=== PATIENT | female | born 1960 | race Caucasian/White ===

== ENCOUNTER 2016-07-24 10:20 | Emergency (ER) | payer OTHER ==
[~2016-07-24] VITALS: Ht 172.7 cm; Wt 58.2 kg
[2016-07-24 10:24] VITALS: TEMP 97.3
[2016-07-24] MEDS ORDERED: PERCOCET 325 MG1 TA2 PO (13:18)
[2016-07-24 14:04] VITALS: BP 112/60; PULSE 71
== END 2016-07-24 14:07 | disposition home or self-care (01) ==
LOC: COL.ER 10:20
DX: S30.0XXA Contusion of lower back and pelvis, initial encounter (principal); W10.9XXA Fall (on) (from) unspecified stairs and steps, initial encounter; W00.1XXA Fall from stairs and steps due to ice and snow, initial encounter
CPT/HCPCS: J3010

== ENCOUNTER → 2017-02-01 | Outpatient (CLI) | payer OTHER ==
[~2017-02-01] MED LIST: PERCOCET 325 MG1 TA2 PO
== END ==
LOC: COL.RAD 10:23
DX: N88.8 Other specified noninflammatory disorders of cervix uteri (principal)

== ENCOUNTER → 2017-04-12 | Outpatient (CLI) | payer OTHER | LOC: MC.RAD 16:10 | DX: Z12.31 Encounter for screening mammogram for malignant neoplasm of breast (principal); Z98.890 Other specified postprocedural states ==

== ENCOUNTER → 2019-07-28 | Outpatient (CLI) | payer OTHER | LOC: MC.RAD 08:43 | DX: Z12.31 Encounter for screening mammogram for malignant neoplasm of breast (principal) ==

== ENCOUNTER → 2020-08-17 | Outpatient (CLI) | payer OTHER | LOC: MC.RAD 16:10 | DX: Z12.31 Encounter for screening mammogram for malignant neoplasm of breast (principal) ==

== ENCOUNTER → 2021-10-18 | Outpatient (CLI) | payer OTHER | LOC: MC.RAD 09-06 09:15 | DX: Z12.31 Encounter for screening mammogram for malignant neoplasm of breast (principal) ==